=== PATIENT | male | born 1950 | race Caucasian/White ===

== ENCOUNTER 2017-03-12 01:20 | Emergency (ER) | payer MEDICARE ==
[2017-03-12] MEDS ORDERED: Norco 10/325 MG Tablet PO ONE ×2 (01:52)
--- NOTE | 2017-03-12 01:54 | ERPHSYRPT ---
- History of Present Illness Time Seen by Provider: 03/12/17 01:40 Source: patient Exam Limitations: clinical condition Patient Subjective Stated Complaint: PT STATES HE FELL SATURDAY AND HURT HIS RT SHOULDER AND HIS BACK. STATES HIS PAIN HAS INCREASED SINCE THEN. TODAY HE HAS BEEN NAUSEOUS AND HAS BEEN HAVING LOWER BACK PAIN ON THE RIGHT SIDE. STATES HE ALSO HAS A SORE THROAT. Triage Nursing Assessment: PT ALERT AND ORIENTED, ANSWERS QUESTIONS APPROP. PT AMBULATORY WITH SLIGHTLY LIMPING GAIT NOTED. RESPIRATIONS NONLABORED WITH LUNGS CTA. NO BRUISING NOTED TO RT SHOULDER OR BACK. SLIGHTLY LIMITED ROM TO RT SHOULDER AND TENDERNESS NOTED TO RT LOWER BACK. CAP REFILL, RADIAL PULSE, SENSATION TO RT ARM WNL. CAP REFILL, PEDAL PULSES, AND SENSATION TO BILAT LOWER EXT WNL. Physician History: PATIENT WITH A HISTORY OF HYPERTENSION COMPLAINS OF HAVING A FALL 1 WEEK ONTO HIS RIGHT SHOULDER AND LOWER BACK PAIN ABOVE HIS HIP. DENIES ASSOCIATED HEAD, NECK OR BACK INJURY, NUMBNESS, TINGLING OR WEAKNESS IN EXTREMITIES. HAS INCREASING PAIN DISCOMFORT IN HIS RIGHT SHOULDER AND LOWER BACK. PATIENT ALSO COMPLAINS OF A SORETHROAT. Occurred: last week Reason for Fall: slipped Injuries/Pain Location: no injury, upper extremity, back Loss of Consciousness: no loss of consciousness Quality: throbbing Severity of Pain-Max: moderate Severity of Pain-Current: moderate Allergies/Adverse Reactions: No Known Drug Allergies Allergy (Verified 03/12/17 01:34) Home Medications: Lisinopril 40 mg PO HS 02/15/16 [History] Hx Tetanus, Diphtheria Vaccination/Date Given: No Hx Influenza Vaccination/Date Given: No Hx Pneumococcal Vaccination/Date Given: No Immunizations Up to Date: No - Review of Systems Constitutional: No Fever, No Chills Eyes: No Symptoms Ears, Nose, & Throat: No Symptoms Respiratory: No Cough, No Dyspnea Cardiac: No Chest Pain, No Edema, No Syncope Abdominal/Gastrointestinal: No Symptoms, No Abdominal Pain, No Nausea, No Vomiting, No Diarrhea Genitourinary Symptoms: No Symptoms, No Dysuria Musculoskeletal: Fall, Injury, Joint Pain, Joint Swelling, No Back Pain, No Neck Pain Skin: No Rash Neurological: No Dizziness, No Focal Weakness, No Sensory Changes Psychological: No Symptoms Endocrine: No Symptoms All Other Systems: Reviewed and Negative - Past Medical History Pertinent Past Medical History: Yes Cardiac History: Hypertension History: Other 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 Disorders: Penile Cancer Other Medical History: kidney stones - Past Surgical History Past Surgical History: Yes Male Surgical History: Other Other Surgical History: CYSTO WITH STENT FOR KIDNEY STONES - Social History Smoking Status: Never smoker Exposure to second hand smoke: Yes Drug Use: none Patient Lives Alone: No - Nursing Vital Signs Nursing Vital Signs: Initial Vital Signs Temperature 98.0 F Temperature Source Oral Pulse Rate 59 Respiratory Rate 18 Blood Pressure [] 141/76 Pain Intensity 6 - Mya Coma Score Best Eye Response ([place]): (4) open spontaneously Best Verbal Response ([place]): (5) oriented Best Motor Response ([place]): (6) obeys commands [place] Total: 15 - Physical Exam General Appearance: no apparent distress, alert Head Injury: no evidence of injury Eye Exam: PERRL/EOMI ENT Exam: airway nml Neck Exam: supple, trachea midline, normal inspection, No tenderness Respiratory/Chest Exam: normal breath sounds, No respiratory distress Cardiovascular Exam: normal heart sounds, regular rate/rhythm Gastrointestinal Exam: soft, No tenderness, No distention, No guarding, No ecchymosis Back Exam: normal inspection, other (TENDERNESS RIGHT POSTERIOR SUPERIOR ILIAC CREST ), No vertebral tenderness Extremity Exam: normal inspection, normal range of motion, pelvis stable, pain with movement, No deformities Peripheral Pulses: carotid (R): 2+, carotid (L): 2+, femoral (R): 2+, femoral (L ): 2+, dorsalis-pedis (R): 2+, dorsalis-pedis (L): 2+ Neurologic Exam: alert, oriented x 3, cooperative, sensation nml, No motor deficits Skin Exam: normal color, warm, dry SpO2: 99 Oxygen Delivery: Room Air - Radiology Exams Shoulder X-ray Interpretation: Interpreted by me, Negative, No Fracture Pelvis X-ray Interpretation: Interpreted by me, Negative, No Fracture Ordered Tests: Active Orders 24 hr Category Date Time Status PELVIS (1 OR 2 VIEWS) Stat Exams 03/12/17 01:51 Taken SHOULDER Stat Exams 03/12/17 01:51 Taken CULTURE, THROAT Stat Lab 03/12/17 03:06 Received STREP SCREEN-BETA A Stat Lab 03/12/17 03:06 Completed Medication Summary Discontinued Medications Generic Name Dose Route Start Last Admin Trade Name Freq PRN Reason Stop Dose Admin Acetaminophen/Hydrocodone Bit[place] 1 tab 04/25/17 01:52 03/12/17 02:03 [place] 10/325 Mg Tablet PO 03/12/17 01:53 1 tab STAT ONE Administration Acetaminophen/Hydrocodone Bitart 2 tab 03/12/17 01:52 03/12/17 02:04 [place] 10/325 Mg Tablet PO 03/12/17 01:53 2 tab SENT HOME W/ PATIENT ONE Administration Acetaminophen/Hydrocodone Bitart Confirm 03/12/17 02:03 [place] 10/325 Mg Tablet Administered 03/12/17 02:04 Dose 3 tab .ROUTE .STK-MED ONE Lab/Rad Data: Laboratory Results 03/12/17 Range/Units 03:06 Streptococcus Screen NEGATIVE (Negative) - Progress Progress Note: 03/12/17 02:31 PATIENT GIVEN NORCO 10/325 AND zithromax 500MG ORALLY 03/12/17 03:24 Counseled pt/family regarding: lab results, diagnosis, need for follow-up, rad results - Departure Time of Disposition: 03:30 Departure Disposition: Home Clinical Impression: CONTUSION/STRAIN RIGHT SHOULDER, RIGHT SUPERIOR POSTERIOR ILIAC CREST CON, ACUTE PHARYNGITIS Condition: Stable Critical Care Time: No Referrals: LOIS RUEDA MD [Primary Care Provider] - Additional Instructions: NORCO 10/325 EVERY 4 HOURS FOR PAIN NEEDED. ANTIBIOTIC ZITHROMAX 250MG, 2 TABLETS DAY 1 THEN, 1 TABLET DAILY FOR 4 DAYS. WEAR THE RIGHT ARM SLING FOR COMFORT. CONSULT YOUR FAMILY PHYSICIAN FOR FOLLOWUP IN 1 WEEK. Prescriptions: Hydrocodone/APAP 10/325 mg [[place] 10/325 MG Tablet] 1 tab PO Q4H PRN PRN # 15 tablet PRN Reason: Pain Azithromycin 250 mg [Zithromax 250 MG TABLET] 250 mg PO ZPACK #6 tablet
[2017-03-12] MEDS ORDERED: Norco 10/325 MG Tablet ONE (02:03)
[2017-03-12] MEDS ORDERED: Zithromax 250 MG TABLET PO ONE (03:22)
[2017-03-12] MEDS ORDERED: Zithromax 250 MG TABLET ONE (03:33)
[2017-03-12 03:47] VITALS: BP 132/71; PULSE 57; O2SAT 98
--- NOTE | 2017-03-12 09:20 | XRAY ---
Indication: Pain following fall. Comparison: None AP pelvis demonstrates mild lumbosacral junction degenerative changes. No other bony, articular, or soft tissue abnormalities.
--- NOTE | 2017-03-12 09:20 | XRAY ---
Indication: Pain following fall. Comparison: None 3 views of the right shoulder demonstrates moderate AC degenerative arthropathy and scattered pulmonary calcified granulomas. No other bony, articular, or soft tissue abnormalities.
== END 2017-03-12 03:51 | disposition home or self-care (01) ==
LOC: ED 01:20
DX: S40.011A Contusion of right shoulder, initial encounter (principal); S43.401A Unspecified sprain of right shoulder joint, initial encounter; J02.9 Acute pharyngitis, unspecified
CPT/HCPCS: 72170; 73030; 87070; 87430; 99283; A9270-GY

== ENCOUNTER 2017-10-06 18:28 | Emergency (ER) | payer MEDICARE ==
--- NOTE | 2017-10-06 19:11 | ERPHSYRPT ---
- History of Present Illness Time Seen by Provider: 10/06/17 18:50 Source: patient Exam Limitations: clinical condition Patient Subjective Stated Complaint: chest pain since yesterday. cough and bronchitis symptoms since saturday. Triage Nursing Assessment: ambulated to room with some shortness of breath. intermittent dry cough noted. states chest pain is sharp when he coughs. denies any cardiac history. no edema noted. breath sounds diminished. Physician History: PATIENT WITH A HISTORY OF HYPERTENSION COMPLAINS OF PRODUCTIVE COUGH ASSOCIATED WITH SHARP PAINS AFTER COUGHING, OVER THE PAST 3 DAYS ASSOCIATED WITH LOW GRADE FEVER. DENIES DYSPNEA AND RADIATION OF PAIN TO NECK, JAW OR ARMS. Timing/Duration: day(s) Activities at Onset: none Quality: sharpness Location: substernal Chest Pain Radiation: no radiation Severity of Pain-Max: moderate Severity of Pain-Current: moderate Modifying Factors: Improves With: other (PAIN ONLY UPON COUGHING) Nitro Today/Relief: no nitro taken today Aspirin Treatment Today: no aspirin today Associated Symptoms: cough Prior Chest Pain/Cardiac Workup: no prior chest pain Allergies/Adverse Reactions: diazepam [From Valium] Adverse Reaction (Verified 10/06/17 19:01) Home Medications: Carvedilol 6.25 mg [Coreg 6.25 MG] 6.25 mg PO BID 10/06/17 [History] Lisinopril/Hydrochlorothiazide [Lisinopril-Hctz 20-25 mg Tab] 1 each PO DAILY [History] Hx Tetanus, Diphtheria Vaccination/Date Given: No Hx Influenza Vaccination/Date Given: No Hx Pneumococcal Vaccination/Date Given: No Immunizations Up to Date: No - Review of Systems Constitutional: No Fever, No Chills Eyes: No Symptoms Ears, Nose, & Throat: No Symptoms Respiratory: Cough, No Dyspnea Cardiac: Chest Pain, No Edema, No Syncope Abdominal/Gastrointestinal: No Symptoms, No Abdominal Pain, No Nausea, No Vomiting, No Diarrhea Genitourinary Symptoms: No Symptoms, No Dysuria Musculoskeletal: No Symptoms, No Back Pain, No Neck Pain Skin: No Rash Neurological: No Dizziness, No Focal Weakness, No Sensory Changes Psychological: No Symptoms Endocrine: No Symptoms All Other Systems: Reviewed and Negative - Past Medical History Pertinent Past Medical History: Yes Cardiac History: Hypertension History: Other 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 Disorders: Penile Cancer Other Medical History: kidney stones - Past Surgical History Past Surgical History: Yes Male Surgical History: Other Other Surgical History: CYSTO WITH STENT FOR KIDNEY STONES - Social History Smoking Status: Former smoker Exposure to second hand smoke: No Drug Use: none Patient Lives Alone: No - Nursing Vital Signs Nursing Vital Signs: Initial Vital Signs Temperature 98.6 F 10/06/17 18:48 Pulse Rate 79 10/06/17 18:48 Respiratory Rate 16 10/06/17 18:48 Blood Pressure 143/85 10/06/17 18:48 O2 Sat by Pulse Oximetry 100 10/06/17 18:48 Pain Scale Pain Intensity 0 - Physical Exam General Appearance: no apparent distress, alert Eye Exam: PERRL/EOMI, eyes nml inspection Ears, Nose, Throat Exam: normal ENT inspection, moist mucous membranes Neck Exam: normal inspection, non-tender, supple Respiratory Exam: normal breath sounds, chest tenderness (THERE IS PARASTERNAL CHEST WALL TENDERNESS, NO CREPITUS), lungs clear, No respiratory distress Cardiovascular Exam: regular rate/rhythm, normal heart sounds, No edema Gastrointestinal/Abdomen Exam: soft, No tenderness, No mass Back Exam: normal inspection, No CVA tenderness, No vertebral tenderness Extremity Exam: normal inspection, normal range of motion Neurologic Exam: alert, oriented x 3, cooperative, normal mood/affect, nml cerebellar function, sensation nml, No motor deficits Skin Exam: normal color, warm, dry Lymphatic Exam: No adenopathy SpO2: 100 Oxygen Delivery: Room Air - Course EKG Interpreted by Me: RATE, Sinus Rhythm, NORMAL AXIS - Radiology Exams Chest X-ray Interpretation: Interpreted by me, Negative, No Infiltrates Ordered Tests: Active Orders 24 hr Category Date Time Status Tube Splicer STAT Care 10/06/17 19:12 Active EKG-ER Only STAT Care 10/06/17 19:11 Active Oxygen-ED Only NASAL CANNULA 2 lpm Care 10/06/17 19:11 Active CHEST 1 VIEW (PORTABLE) Stat Exams 10/06/17 19:12 Taken BLOOD CULTURE Stat Lab 10/06/17 19:00 Received BMP Stat Lab 10/06/17 19:14 Results CBC W DIFF Stat Lab 10/06/17 19:14 Completed MAGNESIUM Stat Lab 10/06/17 19:16 Completed TROPONIN Q3H Lab 10/06/17 19:15 Completed TROPONIN Q3H Lab 10/06/17 22:15 Ordered TROPONIN Q3H Lab 10/07/17 01:15 Ordered TROPONIN Q3H Lab 10/07/17 04:15 Ordered TROPONIN Q3H Lab 10/07/17 07:15 Ordered Medication Summary Generic Name Dose Route Start Last Admin Trade Name Jrei PRN Reason Stop Dose Admin Sodium Chloride 1,000 mls @ 200 mls/hr 10/06/17 19:15 10/06/17 19:21 Sodium Chloride 0.9% 1000 Ml IV 11/05/17 19:14 200 mls/hr .Q5H ERICA Administration Discontinued Medications Generic Name Dose Route Start Last Admin Trade Name Jeri PRN Reason Stop Dose Admin Levofloxacin/Dextrose 500 mg in 100 mls @ 100 mls/hr 10/06/17 19:14 10/06/17 19:21 Levofloxacin 500mg/100ml D5w IV 10/06/17 20:13 100 mls/hr STAT STA Administration Levofloxacin/Dextrose Confirm 10/06/17 19:19 Levofloxacin 500mg/100ml D5w Administered 10/06/17 19:20 Dose 500 mg in 100 mls @ ud IV .[facility]-MED ONE Lab/Rad Data: Laboratory Result Diagrams 10/06/17 19:14 10/06/17 19:14 Laboratory Results 10/06/17 10/06/17 10/06/17 Range/Units 19:16 19:15 19:14 WBC (4.0-10.5) K/mm3 RBC (4.1-5.6) M/mm3 Hgb (12.5-18.0) gm/dl Hct (42-50) % MCV (78-100) fl MCH (26-32) pg MCHC (32-36) g/dl RDW (11.5-14.0) % Plt Count (150-450) K/mm3 MPV (6-9.5) fl Gran % (36.0-66.0) % Lymphocytes % (24.0-44.0) % Monocytes % (0.0-12.0) % Eosinophils % (0.00-5.0) % Basophils % (0.0-0.4) % Basophils # (0-0.4) Sodium 140 (136-145) mEq/L Potassium 4.3 (3.5-5.1) mEq/L Chloride 105 (98-107) mEq/L Carbon Dioxide 28.4 (21-32) mEq/L Anion Gap 10.4 (5-15) MEQ/L BUN Pending Creatinine 1.65 H (0.55-1.30) mg/dl Estimated GFR 45 ML/MIN Glucose 89 (70-110) MG/DL Calcium 8.7 (8.5-10.1) mg/dL Magnesium 2.1 (1.8-2.4) mg/dL Troponin I < 0.017 (0.000-0.056) ng/ml 10/06/17 Range/Units 19:14 WBC 3.3 L (4.0-10.5) K/mm3 RBC 4.44 (4.1-5.6) M/mm3 Hgb 12.8 (12.5-18.0) gm/dl Hct 39.7 L (42-50) % MCV 89.4 (78-100) fl MCH 28.8 (26-32) pg MCHC 32.2 (32-36) g/dl RDW 14.3 H (11.5-14.0) % Plt Count 137 L (150-450) K/mm3 MPV 10.8 H (6-9.5) fl Gran % 61.6 (36.0-66.0) % Lymphocytes % 18.0 L (24.0-44.0) % Monocytes % 16.2 H (0.0-12.0) % Eosinophils % 3.3 (0.00-5.0) % Basophils % 0.9 (0.0-0.4) % Basophils # 0.03 (0-0.4) Sodium (136-145) mEq/L Potassium (3.5-5.1) mEq/L Chloride (98-107) mEq/L Carbon Dioxide (21-32) mEq/L Anion Gap (5-15) MEQ/L BUN Creatinine (0.55-1.30) mg/dl Estimated GFR ML/MIN Glucose (70-110) MG/DL Calcium (8.5-10.1) mg/dL Magnesium (1.8-2.4) mg/dL Troponin I (0.000-0.056) ng/ml - Progress Progress: improved Progress Note: 10/06/17 20:34 ADMINISTERED LEVAQUIN 500MG IVPB Blood Culture(s) Obtained: Yes Antibiotics given: Yes (LEVAQUIN 500 IVPB) Counseled pt/family regarding: lab results, diagnosis, need for follow-up - Departure Time of Disposition: 21:00 Departure Disposition: Home Clinical Impression: ACUTE BRONCHITIS Condition: Stable Critical Care Time: No Referrals: LOIS RUEDA MD [Primary Care Provider] - Additional Instructions: ANTIBIOTIC AUGMENTIN 875MG TWICE DAILY FOR 10 DAYS. CONTINUE ALL CURRENT MEDICATIONS AND COUGH SYRUP. TESSALON PERLES 100MG EVERY 8 HOURS FOR COUGHING. CONSULT YOUR PRIMARY CARE PROVIDER FOR EVALUATION. Prescriptions: Amox Tr/Potass Clav. 875 mg [Augmentin 875-125 Tablet] 875 mg PO BID #20 tablet Benzonatate [Tessalon Perle] 100 mg PO TID PRN #15 capsule PRN Reason: Cough
[2017-10-06] MEDS ORDERED: Levofloxacin 500MG/100ML D5W 500 MG/100 ML BAG IV STA (19:14)
[2017-10-06] MEDS ORDERED: Sodium Chloride 0.9% 1000 ML 1,000 ML IV SCH (19:15)
[2017-10-06] MEDS ORDERED: Levofloxacin 500MG/100ML D5W 500 MG/100 ML BAG IV ONE (19:19)
[2017-10-06] MEDS ORDERED: Sodium Chloride 0.9% 1000 ML 1,000 ML ONE (19:19)
[2017-10-06 19:22] LABS: ANION GAP 10.4 MEQ/L (5-15); BASOPHIL % 0.9 % (0.0-0.4); Carbon Dioxide 28.4 mEq/L (21-32); Eosinophil % 3.3 % (0.00-5.0); Granulocytes % 61.6 % (36.0-66.0); Mean Cell Volume 89.4 fl (78-100); Mean Corpuscular Hemoglobin 28.8 pg (26-32); Mean Platelet Volume 10.8 fl (6-9.5); Monocytes % 16.2 % (0.0-12.0); Platelet Count 137 K/mm3 (150-450); Potassium 4.3 mEq/L (3.5-5.1); Red Blood Count 4.44 M/mm3 (4.1-5.6); Red Cell Distribution Width 14.3 % (11.5-14.0); White Blood Count 3.3 K/mm3 (4.0-10.5)
[2017-10-06 21:03] VITALS: BP 137/87; PULSE 78; O2SAT 99
--- NOTE | 2017-10-07 08:48 | XRAY ---
Indication: Cough, congestion, fever, and chest pain. Comparison: None Portable chest hyperinflated and clear with incidental scattered calcified granulomas. Heart is not enlarged. Bony thorax intact. Impression: Nonacute hyperinflated chest. Evidence for old granulomatous disease.
== END 2017-10-06 21:18 | disposition home or self-care (01) ==
LOC: ED 18:28
DX: J20.9 Acute bronchitis, unspecified (principal)
CPT/HCPCS: 36000; 36415; 71010; 80048; 83735; 84484; 85025; 87040; 93005; 93041; 96360; 96365; 99284; 99285; J1956

== ENCOUNTER 2017-12-13 00:21 | Emergency (ER) | payer MEDICARE ==
[2017-12-13 00:39] VITALS: BP 176/88
[2017-12-13] MEDS ORDERED: Zofran 4 MG/2 ML VIAL IV ONE (00:42)
[2017-12-13] MEDS ORDERED: Sodium Chloride 0.9% 1000 ML 1,000 ML IV STA (00:42)
[2017-12-13] MEDS ORDERED: MORPHINE SULFATE 4 MG INJ IV ONE (00:42)
--- NOTE | 2017-12-13 00:47 | ERPHSYRPT ---
- History of Present Illness Time Seen by Provider: 12/13/17 00:37 Source: patient Exam Limitations: no limitations Patient Subjective Stated Complaint: left lesticle and left lower abdominal pain increasingly worse since 1830 today. Triage Nursing Assessment: alert and oriented. non distress.. stating pain to left testicle that goes into lower abdomen.. states has hx of kkidney stones on the other side Physician History: 67 y/o male comes to the ER with complaints of left lower abdominal pain that started this evening. Pt has a history of kidney stones. Pt describes the pain as sharp, constant, 9/10 and pt has not taken any pain meds. Pt denies any fever , chills, nausea, vomiting, constipation, diarrhea, dysuria, hematuria or polyuria. Timing/Duration: today Activites at Onset: none Quality: sharpness Onset Location: LLQ Pain Radiation: none Severity of Pain-Max: severe Severity of Pain-Current: severe Modifying Factors: Improves With: nothing Associated Symptoms: No nausea, No vomiting Allergies/Adverse Reactions: diazepam [From Valium] Adverse Reaction (Verified 12/13/17 00:45) Home Medications: Carvedilol 6.25 mg [Coreg 6.25 MG] 6.25 mg PO BID 10/06/17 [History] Lisinopril/Hydrochlorothiazide [Lisinopril-Hctz 20-25 mg Tab] 1 each PO DAILY [History] Hx Tetanus, Diphtheria Vaccination/Date Given: No Hx Influenza Vaccination/Date Given: No Hx Pneumococcal Vaccination/Date Given: No - Past Medical History Pertinent Past Medical History: Yes Cardiac History: Hypertension History: Other 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 Disorders: Penile Cancer Other Medical History: kidney stones - Past Surgical History Past Surgical History: Yes Male Surgical History: Other Other Surgical History: CYSTO WITH STENT FOR KIDNEY STONES - Social History Smoking Status: Never smoker Exposure to second hand smoke: No Drug Use: none Patient Lives Alone: No - Review of Systems Constitutional: No Fever, No Chills Eyes: No Symptoms Ears, Nose, & Throat: No Symptoms Respiratory: No Cough, No Dyspnea Cardiac: No Chest Pain, No Edema, No Syncope Abdominal/Gastrointestinal: Abdominal Pain, No Nausea, No Vomiting, No Diarrhea Genitourinary Symptoms: No Dysuria, No Frequency, No Hematuria, No Urinary Retention Musculoskeletal: No Back Pain, No Neck Pain Skin: No Rash Neurological: No Dizziness, No Focal Weakness, No Sensory Changes Psychological: No Symptoms Endocrine: No Symptoms All Other Systems: Reviewed and Negative - Nursing Vital Signs Nursing Vital Signs: Initial Vital Signs Temperature 97.5 F 12/13/17 00:28 Pulse Rate 90 12/13/17 00:28 Respiratory Rate 18 12/13/17 00:28 Blood Pressure 176/88 12/13/17 00:28 O2 Sat by Pulse Oximetry 93 L 12/13/17 00:28 Pain Scale Pain Intensity 0 - Physical Exam General Appearance: mild distress, alert Eye Exam: PERRL/EOMI Ears, Nose, Throat Exam: pharynx normal, moist mucous membranes Neck Exam: normal inspection, supple Respiratory Exam: normal breath sounds, lungs clear Cardiovascular Exam: regular rate/rhythm, pulse deficit, No edema Gastrointestinal/Abdomen Exam: soft, tenderness, No distention, No rebound Back Exam: normal inspection, normal range of motion, No CVA tenderness Extremity Exam: normal inspection, normal range of motion, No pedal edema Neurologic Exam: alert, oriented x 3, cooperative, sensation nml, No motor deficits Skin Exam: normal color, warm, dry, No rash SpO2: 93 Oxygen Delivery: Room Air - Course Nursing assessment & vital signs reviewed: Yes Ordered Tests: Active Orders 24 hr Category Date Time Status IV Insertion STAT Care 12/13/17 00:42 Active ABDOMEN AND PELVIS W/0 CONTRAS [CT] Stat Exams 12/13/17 00:43 Taken AMYLASE Stat Lab 12/13/17 01:24 Received CBC W DIFF Stat Lab 12/13/17 01:24 Completed CMP Stat Lab 12/13/17 01:24 Received CULTURE,URINE Stat Lab 12/13/17 00:46 Received LIPASE Stat Lab 12/13/17 01:24 Received UA W/ MICROSCOPIC Stat Lab 12/13/17 00:46 Completed Medication Summary Generic Name Dose Route Start Last Admin Trade Name Freq PRN Reason Stop Dose Admin Oxycodone/Acetaminophen 2 tab 12/13/17 01:49 Percocet Tablet 5/325mg PO 12/13/17 01:50 SENT HOME W/ PATIENT STA Discontinued Medications Generic Name Dose Route Start Last Admin Trade Name Freq PRN Reason Stop Dose Admin Sodium Chloride 1,000 mls @ 999 mls/hr 12/13/17 00:42 12/13/17 01:16 Sodium Chloride 0.9% 1000 Ml IV 12/13/17 01:42 999 mls/hr .Q1H1M STA Administration Sodium Chloride Confirm 12/13/17 01:01 Sodium Chloride 0.9% 1000 Ml Administered 12/13/17 01:02 Dose 1,000 mls @ ud .ROUTE .STK-MED ONE Ceftriaxone Sodium/Dextrose 1 g in 50 mls @ 100 mls/hr 12/13/17 01:20 01:30 Rocephin 1 Gm-D5w 50 Ml Bag IV 12/13/17 01:49 100 mls/hr STAT ONE Administration Ceftriaxone Sodium/Dextrose Confirm 12/13/17 01:27 Rocephin 1 Gm-D5w 50 Ml Bag Administered 12/13/17 01:28 Dose 1 g in 50 mls @ ud IV .STK-MED ONE Morphine Sulfate 4 mg 12/13/17 00:42 12/13/17 01:15 Morphine Sulfate 4 Mg Inj IV 12/13/17 00:43 4 mg STAT ONE Administration Morphine Sulfate Confirm 12/13/17 01:01 Morphine Sulfate 4 Mg Inj Administered 12/13/17 01:02 Dose 4 mg .ROUTE .STK-MED ONE Ondansetron HCl 4 mg 12/13/17 00:42 12/13/17 01:15 Zofran 4 Mg/2 Ml Vial IV 12/13/17 00:43 4 mg STAT ONE Administration Ondansetron HCl Confirm 12/13/17 01:01 Zofran 4 Mg/2 Ml Vial Administered 12/13/17 01:02 Dose 4 mg .ROUTE .STK-MED ONE Tamsulosin HCl 0.4 mg 12/13/17 01:21 12/13/17 01:29 Flomax 0.4 Mg PO 12/13/17 01:22 0.4 mg ONCE ONE Administration Tamsulosin HCl Confirm 12/13/17 01:26 Flomax 0.4 Mg Administered 12/13/17 01:27 Dose 0.4 mg .ROUTE .STK-MED ONE Lab/Rad Data: Laboratory Result Diagrams 12/13/17 01:24 Laboratory Results 12/13/17 12/13/17 Range/Units 01:24 00:46 WBC 7.2 (4.0-10.5) K/mm3 RBC 4.28 (4.1-5.6) M/mm3 Hgb 12.1 L (12.5-18.0) gm/dl Hct 37.9 L (42-50) % MCV 88.6 (78-100) fl MCH 28.2 (26-32) pg MCHC 31.9 L (32-36) g/dl RDW 15.3 H (11.5-14.0) % Plt Count 173 (150-450) K/mm3 MPV 9.9 H (6-9.5) fl Gran % 75.4 H (36.0-66.0) % Lymphocytes % 13.7 L (24.0-44.0) % Monocytes % 8.5 (0.0-12.0) % Eosinophils % 2.1 (0.00-5.0) % Basophils % 0.3 (0.0-0.4) % Basophils # 0.02 (0-0.4) Ur Collection Type VOID Urine Color YELLOW (YELLOW) Urine Appearance CLOUDY (CLEAR) Urine pH 6.0 (5-6) Ur Specific [place] 1.015 (1.005-1.025) Urine Protein 30 (Negative) Urine Ketones NEGATIVE (NEGATIVE) Urine Blood 250 (0-5) Red/ul Urine Nitrite POSITIVE (NEGATIVE) Urine Bilirubin NEGATIVE (NEGATIVE) Urine Urobilinogen NORMAL (0-1) mg/dL Ur Leukocyte Esterase 2+ (NEGATIVE) Urine Microscopic RBC 15-25 (0-2) /HPF Urine Microscopic WBC 50-100 (0-5) /HPF Ur Epithelial Cells FEW (FEW) /HPF Urine Bacteria MANY (NEGATIVE) /HPF Urine Culture Reflexed YES (NO) Urine Glucose NEGATIVE (NEGATIVE) mg/dL Specimen Received 12/13/17 0045 - Progress Progress: improved Progress Note: 12/13/17 01:[address] scan abd/pelvis shows a left mid ureter 4mm obstructing stone. Pt has no pain after receiving morphine 4mg, zofran 4mg Iv X 1 dose and NS fluids. Pt has a UTI and will be given a dose of rocephin. I spoke to Dr Petersen, urologist at [facility] and he wants the patient to go to [facility] if he should have worsening pain. Pt will be sent home on flomax, cipro, zofran, toradol and percocet. - Departure Time of Disposition: 01:52 Departure Disposition: Home Clinical Impression: Kidney stone Condition: Stable Critical Care Time: No Referrals: LOIS RUEDA MD [Primary Care Provider] - CHERYL MULLEN [COURTESY STAFF] - Additional Instructions: Call Dr Mullen's office tomorrow to set up an appointment for early next week. [facility] to [facility] if you should have worsening abdominal pain, back pain, nausea, vomiting, fever or chills. Prescriptions: Ciprofloxacin HCl [Cipro] 500 mg PO BID #14 tablet Ketorolac Tromethamine [Toradol] 10 mg PO QID PRN #20 tablet PRN Reason: Pain Ondansetron [Zofran Odt] 4 mg PO QID PRN #20 tab.rapdis PRN Reason: Nausea/Vomiting Oxycodone HCl/Acetaminophen [Percocet 5-325 mg Tablet] 1 each PO QID PRN #14 tablet MDD 4 PRN Reason: Severe Pain Tamsulosin HCl 0.4 mg [Flomax 0.4 MG] 0.4 mg PO DAILY #10 cap
[2017-12-13] MEDS ORDERED: MORPHINE SULFATE 4 MG INJ ONE (01:01)
[2017-12-13] MEDS ORDERED: Zofran 4 MG/2 ML VIAL ONE (01:01)
[2017-12-13] MEDS ORDERED: Sodium Chloride 0.9% 1000 ML 1,000 ML ONE (01:01)
[2017-12-13 01:02] LABS: Appearance CLOUDY (CLEAR); Bilirubin NEGATIVE (NEGATIVE); Blood 250 Ery/ul (0-5); Epithelial Cells FEW /HPF (FEW); Glucose NEGATIVE (NEGATIVE); Ketones NEGATIVE (NEGATIVE); Leukocyte Esterase 2+ (NEGATIVE); Nitrite POSITIVE (NEGATIVE); Protein,Urine Dip 30 (Negative); Specific Gravity 1.015 (1.005-1.025); Urobilinogen NORMAL mg/dL (0-1); WBC 50-100 /HPF (0-5)
[2017-12-13 01:03] LABS: Bacteria MANY /HPF (NEGATIVE)
[2017-12-13] MEDS ORDERED: ROCEPHIN 1 Gm-D5w 50 ml Bag** 1 G/50 ML IVPB IV ONE ×2 (01:20→01:27)
[2017-12-13] MEDS ORDERED: Flomax 0.4 MG PO ONE (01:21)
[2017-12-13] MEDS ORDERED: Flomax 0.4 MG ONE (01:26)
[2017-12-13 01:27] LABS: BASOPHIL % 0.3 % (0.0-0.4); Basophil (Absolute #) 0.02 (0-0.4); Eosinophil % 2.1 % (0.00-5.0); Eosinophil (Absolute #) 0.15 (0-0.5); Granulocyte Absolute (ANC) 5.44 (1.4-6.9); Granulocytes % 75.4 % (36.0-66.0); Hematocrit 37.9 % (42-50); Hemoglobin 12.1 gm/dl (12.5-18.0); Lymphocyte (Absolute #) 0.99 (1.0-4.6); Lymphocytes % 13.7 % (24.0-44.0); Mean Cell Volume 88.6 fl (78-100); Mean Corpuscular Hemoglobin 28.2 pg (26-32); Mean Corpuscular Hgb Concent. 31.9 g/dl (32-36); Mean Platelet Volume 9.9 fl (6-9.5); Monocyte (Absolute #) 0.61 (0.0-1.3); Monocytes % 8.5 % (0.0-12.0); Platelet Count 173 K/mm3 (150-450); Red Blood Count 4.28 M/mm3 (4.1-5.6); Red Cell Distribution Width 15.3 % (11.5-14.0); White Blood Count 7.2 K/mm3 (4.0-10.5)
[2017-12-13 01:46] VITALS: PULSE 78
[2017-12-13] MEDS ORDERED: PERCOCET TABLET 5/325MG PO STA (01:49)
[2017-12-13 01:51] LABS: ALBUMIN 3.5 g/dL (3.4-5.0); ANION GAP 10.3 MEQ/L (5-15); BILIRUBIN,TOTAL 0.4 mg/dL (0.2-1.0); Calcium 8.9 mg/dL (8.5-10.1); Carbon Dioxide 28.5 mEq/L (21-32); Creatinine 1 1.58 mg/dl (0.55-1.30); Potassium 3.7 mEq/L (3.5-5.1); Total Protein 7.4 gm/dL (6.4-8.2)
[2017-12-13 01:55] VITALS: O2SAT 93
[2017-12-13] MEDS ORDERED: PERCOCET TABLET 5/325MG ONE (02:01)
--- NOTE | 2017-12-13 09:28 | XRAY ---
Indication: Left lower quadrant pain. History kidney stone. Multiple contiguous axial images obtained through the abdomen and pelvis without contrast as ordered. Comparison: February 15, 2016. Lung bases again demonstrates scattered calcified granulomas. No infiltrate or effusion. Heart is not enlarged. Stable small hiatal hernia. Noncontrasted stomach and bowel loops appear nonobstructed. Normal appendix. No free fluid/air. There is now a 4 mm left proximal ureteral calculus, approximately L3-L4 level. More proximal left ureter is slightly prominent with mild hydronephrosis but no perinephric fluid consistent with partial obstruction. Also new 3 mm right proximal ureteral calculus, approximately L4 level without significant hydronephrosis or hydroureter. There remains multiple bilateral renal micro-calculi. Remaining liver, gallbladder, pancreas, spleen, adrenal glands, kidneys, ureters, and bladder appear unremarkable. There remains minimal aortoiliac calcifications without AAA. Osseous structures intact with stable lumbosacral junction degenerative disc disease. Stable small fatty left inguinal hernia and partially visualized left scrotal hydrocele Impression: 1. New bilateral proximal ureteral micro-calculi as detailed. Stable bilateral renal micro-calculi. 2. Stable small hiatal hernia, fatty left inguinal hernia, and partially visualized left scrotal hydrocele. Comment: Preliminary interpretation was made by [facility]. Right ureteral calculus, hiatal hernia, fatty left inguinal hernia, and left scrotal hydrocele not reported and are not felt to change patient care. CTDI 23.68
== END 2017-12-13 02:24 | disposition home or self-care (01) ==
LOC: ED 00:21
DX: N20.0 Calculus of kidney (principal); N39.0 Urinary tract infection, site not specified; Z87.442 Personal history of urinary calculi
CPT/HCPCS: 36000; 36415; 74176; 80053; 81000; 82150; 83690; 85025; 87077; 87086; 87186; 96360; 96365; 96374; 96375; 99284; J0696; J2270; J2405; A9270-GY

== ENCOUNTER 2018-07-25 12:22 | Emergency (ER) | payer MEDICARE, OTHER ==
[2018-07-25] MEDS ORDERED: Adacel Vial IM ONE ×2 (12:36→12:40)
--- NOTE | 2018-07-25 12:36 | ERPHSYRPT ---
- History of Present Illness Time Seen by Provider: 07/25/18 12:33 Source: patient, family Exam Limitations: no limitations Physician History: The patient is a 67-year-old right-handed male with his complaining that he accidentally lacerated his left ring finger on a jacqui nail while carrying sheet rock out of the wall prior to arrival. His last tetanus vaccination is unknown. He denies numbness or tingling. He can move his finger freely without difficulty. His past medical history significant for hypertension and BPH. Timing/Duration: today Quality: painful Severity: mild Location: hands (left ring finger) Possible Causes: other (nail) Associated Symptoms: denies symptoms Allergies/Adverse Reactions: diazepam [From Valium] Adverse Reaction (Verified 07/25/18 12:33) Home Medications: Carvedilol 6.25 mg [Coreg 6.25 MG] 6.25 mg PO BID 10/06/17 [History] Lisinopril/Hydrochlorothiazide [Lisinopril-Hctz 20-25 mg Tab] 1 each PO DAILY [History] Hx Tetanus, Diphtheria Vaccination/Date Given: No Hx Influenza Vaccination/Date Given: No Hx Pneumococcal Vaccination/Date Given: No - Review of Systems Constitutional: No Fever, No Chills Eyes: No Symptoms Ears, Nose, & Throat: No Symptoms Respiratory: No Cough, No Dyspnea Cardiac: No Chest Pain, No Edema, No Syncope Abdominal/Gastrointestinal: No Abdominal Pain, No Nausea, No Vomiting, No Diarrhea Genitourinary Symptoms: No Dysuria Musculoskeletal: No Back Pain, No Neck Pain Skin: Other (laceration) Neurological: No Dizziness, No Focal Weakness, No Sensory Changes Psychological: No Symptoms Endocrine: No Symptoms Hematologic/Lymphatic: No Symptoms Immunological/Allergic: No Symptoms All Other Systems: Reviewed and Negative - Past Medical History Pertinent Past Medical History: Yes Cardiac History: Hypertension History: Other 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 Disorders: Penile Cancer Other Medical History: kidney stones - Past Surgical History Past Surgical History: Yes Male Surgical History: Other Other Surgical History: CYSTO WITH STENT FOR KIDNEY STONES - Social History Smoking Status: Never smoker Exposure to second hand smoke: No Drug Use: none Patient Lives Alone: No - Nursing Vital Signs Nursing Vital Signs: Initial Vital Signs Temperature 97.5 F 07/25/18 12:26 Pulse Rate 60 07/25/18 12:26 Respiratory Rate 20 09/07/18 12:26 Blood Pressure 115/75 07/25/18 12:26 O2 Sat by Pulse Oximetry 100 07/25/18 12:26 Pain Scale Pain Intensity 2 - Physical Exam General Appearance: no apparent distress, alert Eye Exam: PERRL/EOMI, eyes nml inspection Ears, Nose, Throat Exam: normal ENT inspection, pharynx normal, moist mucous membranes Neck Exam: normal inspection, non-tender, supple, full range of motion Respiratory Exam: normal breath sounds, lungs clear, No respiratory distress Cardiovascular Exam: regular rate/rhythm, normal heart sounds Gastrointestinal/Abdomen Exam: soft, mass, No tenderness Rectal Exam: not done Back Exam: normal inspection, normal range of motion, No CVA tenderness, No vertebral tenderness Extremity Exam: normal inspection, normal range of motion Neurologic Exam: alert, oriented x 3, cooperative, normal mood/affect, sensation nml, No motor deficits Skin Exam: laceration (3 cm linear laceration to dorsal surface of mid left ring finger) SpO2 Interpretation: normal Procedures - Laceration/Wound Repair Left Dorsal Hand Wound Location: Left, hand Wound Length (cm): 3 Wound's Depth, Shape: superficial, linear Wound Explored: clean Irrigated: Yes Hibiclens Prep: Yes Volume Anesthetic (ccs): 6 Wound Repaired With: sutures Suture Size/Type: 4-0, ethilon Number of Sutures: 4 Layer Closure?: No Sterile Dressing Applied?: Yes Splint Applied?: Yes Ordered Tests: Active Orders 24 hr Category Date Time Status Wound Care STAT Care 07/25/18 12:36 Active Medication Summary Discontinued Medications Generic Name Dose Route Start Last Admin Trade Name Jeri PRN Reason Stop Dose Admin Diphtheria/Tetanus/Acell Pertussis 0.5 ml 07/25/18 12:36 07/25/18 12:41 Adacel Vial IM 07/25/18 12:37 0.5 ml .ONCE ONE Administration Diphtheria/Tetanus/Acell Pertussis Confirm 07/25/18 12:40 Adacel Vial Administered 07/25/18 12:41 Dose 0.5 ml IM .STK-MED ONE Lidocaine HCl 10 ml 07/25/18 12:50 07/25/18 13:03 Xylocaine 1% Hcl 20 Ml Mdv IJ 07/25/18 12:51 10 ml STAT ONE Administration Lidocaine HCl Confirm 07/25/18 12:55 Xylocaine 1% Hcl 20 Ml Mdv Administered 07/25/18 12:56 Dose 5 ml .ROUTE .STK-MED ONE - Progress Progress: improved Counseled pt/family regarding: need for follow-up - Departure Time of Disposition: 13:31 Departure Disposition: Home Clinical Impression: Finger laceration Condition: Stable Critical Care Time: No Referrals: LOIS RUEDA MD [Primary Care Provider] - Additional Instructions: You have a laceration to your left ring finger that was closed with 4 sutures. Have her sutures removed by her primary medical doctor in 12-14 days. You were given a tetanus vaccination in the ER. Take augmentin 875 twice a day for 10 days. Take Tylenol or ibuprofen as needed for pain. Prescriptions: Amoxicillin/Potassium Clav [Augmentin 875-125 Tablet] 875 mg PO BID #20 tablet
[2018-07-25] MEDS ORDERED: XYLOCAINE 1% HCL 20 ML MDV IJ ONE (12:50)
[2018-07-25] MEDS ORDERED: XYLOCAINE 1% HCL 20 ML MDV ONE (12:55)
[2018-07-25 13:47] VITALS: BP 123/68; PULSE 71; O2SAT 96
== END 2018-07-25 13:47 | disposition home or self-care (01) ==
LOC: ED 12:22
DX: S61.412A Laceration without foreign body of left hand, initial encounter (principal); W45.0XXA Nail entering through skin, initial encounter; Y93.H3 Activity, building and construction
CPT/HCPCS: 12002; 90471; 90715; 96372; 99284

== ENCOUNTER 2021-11-09 18:17 | Observation (INO) | payer MEDICARE ==
--- NOTE | 2021-11-09 18:24 | ERPHSYRPT ---
- History of Present Illness Source: patient, EMS Exam Limitations: no limitations Timing/Duration: week(s) (Approximately 3 weeks) Cough Quality/Degree: moderate, dry cough Modifying Factors: Improves With: coughing Associated Symptoms: cough, muscle aches, shortness of breath Hx Tetanus, Diphtheria Vaccination/Date Given: No Hx Influenza Vaccination/Date Given: No Hx Pneumococcal Vaccination/Date Given: No <ISABELA IRAHETA - Last Filed: 11/09/21 18:52> <ROMERO WASHINGTON - Last Filed: 11/09/21 22:27> - History of Present Illness Time Seen by Provider: 11/09/21 18:24 Physician History: This is a 71-year-old overweight white male patient with a history of hypertension who has had cold and cough symptoms for approximately 3 weeks. There is associated nausea muscle aches and pains. Patient has had his COVID-19 vaccinations. His cough symptoms and associated shortness of breath was worse today. EMS arrived at the home and the patient required 4 L oxygen via nasal cannula to keep his oxygen saturation at 96%. Patient did receive an albuterol nebulizer treatment in route to the emergency department. Patient denies chest pain. He has had no fevers. He has no significant abdominal pain. (ISABELA IRAHETA) Allergies/Adverse Reactions: morphine Allergy (Verified 11/09/21 18:22) diazepam [From Valium] Adverse Reaction (Verified 11/09/21 18:22) Home Medications: Carvedilol 6.25 mg [Coreg 6.25 MG] 6.25 mg PO BID 10/06/17 [History] Lisinopril/Hydrochlorothiazide [Lisinopril-Hctz 20-25 mg Tab] 1 each PO DAILY 10/06/17 [History] Allopurinol 300 mg [Zyloprim 300 mg] 1 tab PO HS 11/09/21 [History] Ergocalciferol (Vitamin D2) [Vitamin D2] 50,000 unit PO DIRECTIONS UNKNOWN 11/09/21 [History] Travel Risk - International Travel Have you traveled outside of the country in past 3 weeks: No - Coronavirus Screening Are you exhibiting any of the following symptoms?: Yes Symptoms: Cough: New Onset, Shortness of Breath, Headaches/Body Aches/Fatigue Close contact with a COVID-19 positive Pt in past 14-21 Days: Yes <ISABELA IRAHETA - Last Filed: 11/09/21 18:52> - Review of Systems Constitutional: No Symptoms Eyes: No Symptoms Ears, Nose, & Throat: No Symptoms Respiratory: Cough, Dyspnea Cardiac: No Symptoms Abdominal/Gastrointestinal: No Symptoms Genitourinary Symptoms: No Symptoms Musculoskeletal: No Symptoms Skin: No Symptoms Neurological: No Symptoms Psychological: No Symptoms Endocrine: No Symptoms Hematologic/Lymphatic: No Symptoms Immunological/Allergic: No Symptoms All Other Systems: Reviewed and Negative <ISABELA IRAHETA - Last Filed: 11/09/21 18:52> - Past Medical History Pertinent Past Medical History: Yes Cardiac History: Hypertension History: Other 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 Disorders: Penile Cancer Other Medical History: kidney stones - Past Surgical History Past Surgical History: Yes Male Surgical History: Other Other Surgical History: CYSTO WITH STENT FOR KIDNEY STONES - Social History Smoking Status: Never smoker Exposure to second hand smoke: No Drug Use: none Patient Lives Alone: No <ISABELA IRAHETA - Last Filed: 11/09/21 18:52> - Physical Exam General Appearance: mild distress, alert, anxiety, obese Eye Exam: PERRL/EOMI, eyes nml inspection Ears, Nose, Throat Exam: normal ENT inspection, moist mucous membranes Neck Exam: normal inspection, non-tender, supple, full range of motion Respiratory Exam: normal breath sounds, lungs clear, airway intact, No chest tenderness, No respiratory distress Cardiovascular Exam: regular rate/rhythm, normal heart sounds, normal peripheral pulses Gastrointestinal/Abdomen Exam: soft, normal bowel sounds, No tenderness Rectal Exam: not done Back Exam: normal inspection, normal range of motion, No CVA tenderness, No vertebral tenderness Extremity Exam: normal inspection, normal range of motion, pelvis stable Neurologic Exam: alert, oriented x 3, cooperative, dry cans back tender II-XII nml as tested, normal mood/affect, nml cerebellar function, nml station & gait, sensation nml Skin Exam: normal color, warm, dry Lymphatic Exam: No adenopathy SpO2 Interpretation: normal SpO2: 95 O2 Delivery: Nasal Cannula (4 L oxygen) <ISABELA IRAHETA - Last Filed: 11/09/21 18:52> - Nursing Vital Signs Nursing Vital Signs: Initial Vital Signs Temperature 99.7 F 11/09/21 18:24 Pulse Rate 82 11/09/21 18:24 Respiratory Rate 20 11/09/21 18:24 Blood Pressure 101/66 11/09/21 18:24 O2 Sat by Pulse Oximetry 95 11/09/21 18:24 Pain Scale Pain Intensity 0 - Course Nursing assessment & vital signs reviewed: Yes EKG Interpreted by Me: RATE (81), Sinus Rhythm, NORMAL AXIS, NORMAL INTERVALS, NORMAL QRS, NORMAL ST-T, Other (No acute ischemic changes. There are no changes from EKG dated 10/06/2017.) <ISABELA IRAHETA - Last Filed: 11/09/21 18:52> - Radiology Exams Chest X-ray Interpretation: Interpreted by me (Scattered calcified granulomas, bibasilar atelectasis normal cardiac silhouette intact bony thorax.) <ROMERO WASHINGTON - Last Filed: 11/09/21 22:27> Ordered Tests: Active Orders 24 hr Category Date Time Status [employer] STAT Care 11/09/21 18:50 Active EKG-ER Only STAT Care 11/09/21 18:49 Active IV Insertion STAT Care 11/09/21 18:49 Active Isolation, Initiate & Maintain STAT Care 11/09/21 18:49 Active Pulse Oximetry (ED) STAT Care 11/09/21 18:49 Active CHEST 1 VIEW (PORTABLE) Stat Exams 11/09/21 18:50 Taken BLOOD CULTURE Stat Lab 11/09/21 19:15 Ordered CBC W DIFF Stat Lab 11/09/21 19:10 Completed CMP Stat Lab 11/09/21 19:10 Completed D-DIMER QUANTITATIVE Stat Lab 11/09/21 19:10 Completed Ferritin Stat Lab 11/09/21 19:10 Completed INFLUENZA A+B DA Stat Lab 11/09/21 19:15 Completed LDH-LACTATE DEHYDROGENASE Stat Lab 11/09/21 19:10 Completed Lactic Acid Stat Lab 11/09/21 19:20 Completed Sully Screen Stat Lab 11/09/21 19:10 Completed TROPONIN Q3H Lab 11/09/21 19:10 Completed TROPONIN Q3H Lab 11/09/21 22:00 Ordered TROPONIN Q3H Lab 11/10/21 01:00 Ordered TROPONIN Q3H Lab 11/10/21 04:00 Ordered TROPONIN Q3H Lab 11/10/21 07:00 Ordered UA W/RFX UR CULTURE Stat Lab 11/09/21 21:14 Completed Medication Summary Generic Name Dose Route Start Last Admin Trade Name Jeri PRN Reason Stop Dose Admin Sodium Chloride 1,000 mls @ 50 mls/hr 11/09/21 19:00 11/09/21 20:19 Sodium Chloride 0.9% 1000 Ml IV 12/09/21 18:59 50 mls/hr .Q20H ERICA Administration Discontinued Medications Generic Name Dose Route Start Last Admin Trade Name Jeri PRN Reason Stop Dose Admin Calcium Gluconate 1,000 mg 11/09/21 20:05 11/09/21 20:19 Calcium Gluconate 1000 Mg/10 Ml Vial IV 11/09/21 20:06 1,000 mg STAT ONE Administration Calcium Gluconate Confirm 11/09/21 20:17 Calcium Gluconate 1000 Mg/10 Ml Vial Administered 11/09/21 20:18 Dose 1,000 mg IV .ClickDelivery ONE Lab/Rad Data: Laboratory Result Diagrams 11/09/21 19:10 11/09/21 19:10 Laboratory Results 11/09/21 11/09/21 11/09/21 Range/Units 21:14 20:58 19:20 WBC (4.0-10.5) K/mm3 RBC (4.1-5.6) M/mm3 Hgb (12.5-18.0) gm/dl Hct (42-50) % MCV (78-100) fl MCH (26-32) pg MCHC (32-36) g/dl RDW (11.5-14.0) % Plt Count (150-450) K/mm3 MPV (7.5-11.0) fl Gran % (36.0-66.0) % Eos # (Auto) (0-0.5) Absolute Lymphs (auto) (1.0-4.6) Absolute Monos (auto) (0.0-1.3) Lymphocytes % (24.0-44.0) % Monocytes % (0.0-12.0) % Eosinophils % (0.00-5.0) % Basophils % (0.0-0.4) % Absolute Granulocytes (1.4-6.9) Basophils # (0-0.4) D-Dimer (215-500) ng/mL Sodium (137-145) mmol/L Potassium (3.5-5.1) mmol/L Chloride (98-107) mmol/L Carbon Dioxide (22-30) mmol/L Anion Gap (5-15) MEQ/L BUN (9-20) mg/dL Creatinine (0.66-1.25) mg/dL Estimated GFR ML/MIN Glucose (74-106) mg/dL Lactic Acid 1.1 (0.4-2.0) Calcium (8.4-10.2) mg/dL Ferritin (17.9-464) ng/mL Total Bilirubin (0.2-1.3) mg/dL AST (17-59) U/L ALT (0-50) U/L Alkaline Phosphatase (38-126) U/L Lactate Dehydrogenase (120-246) U/L Troponin I (0.000-0.034) ng/mL Serum Total Protein (6.3-8.2) g/dL Albumin (3.5-5.0) g/dL Urine Color YELLOW (YELLOW) Urine Appearance SLIGHTLY CLOUDY (CLEAR) Urine pH 5.0 (5-6) Ur Specific [place] 1.016 (1.005-1.025) Urine Protein 30 (Negative) Urine Ketones NEGATIVE (NEGATIVE) Urine Blood NEGATIVE (0-5) Red/ul Urine Nitrite NEGATIVE (NEGATIVE) Urine Bilirubin NEGATIVE (NEGATIVE) Urine Urobilinogen NEGATIVE (0-1) mg/dL Ur Leukocyte Esterase TRACE (NEGATIVE) Urine WBC (Auto) 0-2 (0-5) /HPF Urine RBC (Auto) NONE (0-2) /HPF U Hyaline Cast (Auto) 3-5 (0-2) /LPF U Epithel Cells (Auto) NONE (FEW) /HPF Urine Bacteria (Auto) NONE (NEGATIVE) /HPF Urine Mucus (Auto) SLIGHT (NEGATIVE) /HPF Urine Culture Reflexed NO (NO) Urine Glucose NEGATIVE (NEGATIVE) mg/dL Monoscreen (Negative) Influenza Type A Ag NEGATIVE (NEGATIVE) Influenza Type B Ag NEGATIVE (NEGATIVE) RSV (PCR) NEGATIVE (Negative) SARS-CoV-2 (PCR) POSITIVE A (NEGATIVE) Group A Strep Antibody (NEGATIVE) 11/09/21 11/09/21 11/09/21 Range/Units 19:15 19:15 19:10 WBC (4.0-10.5) K/mm3 RBC (4.1-5.6) M/mm3 Hgb (12.5-18.0) gm/dl Hct (42-50) % MCV (78-100) fl MCH (26-32) pg MCHC (32-36) g/dl RDW (11.5-14.0) % Plt Count (150-450) K/mm3 MPV (7.5-11.0) fl Gran % (36.0-66.0) % Eos # (Auto) (0-0.5) Absolute Lymphs (auto) (1.0-4.6) Absolute Monos (auto) (0.0-1.3) Lymphocytes % (24.0-44.0) % Monocytes % (0.0-12.0) % Eosinophils % (0.00-5.0) % Basophils % (0.0-0.4) % Absolute Granulocytes (1.4-6.9) Basophils # (0-0.4) D-Dimer (215-500) ng/mL Sodium (137-145) mmol/L Potassium (3.5-5.1) mmol/L Chloride (98-107) mmol/L Carbon Dioxide (22-30) mmol/L Anion Gap (5-15) MEQ/L BUN (9-20) mg/dL Creatinine (0.66-1.25) mg/dL Estimated GFR ML/MIN Glucose (74-106) mg/dL Lactic Acid (0.4-2.0) Calcium (8.4-10.2) mg/dL Ferritin (17.9-464) ng/mL Total Bilirubin (0.2-1.3) mg/dL AST (17-59) U/L ALT (0-50) U/L Alkaline Phosphatase (38-126) U/L Lactate Dehydrogenase (120-246) U/L Troponin I (0.000-0.034) ng/mL Serum Total Protein (6.3-8.2) g/dL Albumin (3.5-5.0) g/dL Urine Color (YELLOW) Urine Appearance (CLEAR) Urine pH (5-6) Ur Specific [place] (1.005-1.025) Urine Protein (Negative) Urine Ketones (NEGATIVE) Urine Blood (0-5) Red/ul Urine Nitrite (NEGATIVE) Urine Bilirubin (NEGATIVE) Urine Urobilinogen (0-1) mg/dL Ur Leukocyte Esterase (NEGATIVE) Urine WBC (Auto) (0-5) /HPF Urine RBC (Auto) (0-2) /HPF U Hyaline Cast (Auto) (0-2) /LPF U Epithel Cells (Auto) (FEW) /HPF Urine Bacteria (Auto) (NEGATIVE) /HPF Urine Mucus (Auto) (NEGATIVE) /HPF Urine Culture Reflexed (NO) Urine Glucose (NEGATIVE) mg/dL Monoscreen POSITIVE (Negative) Influenza Type A Ag NEGATIVE (NEGATIVE) Influenza Type B Ag NEGATIVE (NEGATIVE) RSV (PCR) (Negative) SARS-CoV-2 (PCR) (NEGATIVE) Group A Strep Antibody NOT DETECTED (NEGATIVE) 11/09/21 11/09/21 11/09/21 Range/Units 19:10 19:10 19:10 WBC (4.0-10.5) K/mm3 RBC (4.1-5.6) M/mm3 Hgb (12.5-18.0) gm/dl Hct (42-50) % MCV (78-100) fl MCH (26-32) pg MCHC (32-36) g/dl RDW (11.5-14.0) % Plt Count (150-450) K/mm3 MPV (7.5-11.0) fl Gran % (36.0-66.0) % Eos # (Auto) (0-0.5) Absolute Lymphs (auto) (1.0-4.6) Absolute Monos (auto) (0.0-1.3) Lymphocytes % (24.0-44.0) % Monocytes % (0.0-12.0) % Eosinophils % (0.00-5.0) % Basophils % (0.0-0.4) % Absolute Granulocytes (1.4-6.9) Basophils # (0-0.4) D-Dimer 475 (215-500) ng/mL Sodium (137-145) mmol/L Potassium (3.5-5.1) mmol/L Chloride (98-107) mmol/L Carbon Dioxide (22-30) mmol/L Anion Gap (5-15) MEQ/L BUN (9-20) mg/dL Creatinine (0.66-1.25) mg/dL Estimated GFR ML/MIN Glucose (74-106) mg/dL Lactic Acid (0.4-2.0) Calcium (8.4-10.2) mg/dL Ferritin 261 (17.9-464) ng/mL Total Bilirubin (0.2-1.3) mg/dL AST (17-59) U/L ALT (0-50) U/L Alkaline Phosphatase (38-126) U/L Lactate Dehydrogenase (120-246) U/L Troponin I < 0.012 (0.000-0.034) ng/mL Serum Total Protein (6.3-8.2) g/dL Albumin (3.5-5.0) g/dL Urine Color (YELLOW) Urine Appearance (CLEAR) Urine pH (5-6) Ur Specific [place] (1.005-1.025) Urine Protein (Negative) Urine Ketones (NEGATIVE) Urine Blood (0-5) Red/ul Urine Nitrite (NEGATIVE) Urine Bilirubin (NEGATIVE) Urine Urobilinogen (0-1) mg/dL Ur Leukocyte Esterase (NEGATIVE) Urine WBC (Auto) (0-5) /HPF Urine RBC (Auto) (0-2) /HPF U Hyaline Cast (Auto) (0-2) /LPF U Epithel Cells (Auto) (FEW) /HPF Urine Bacteria (Auto) (NEGATIVE) /HPF Urine Mucus (Auto) (NEGATIVE) /HPF Urine Culture Reflexed (NO) Urine Glucose (NEGATIVE) mg/dL Monoscreen (Negative) Influenza Type A Ag (NEGATIVE) Influenza Type B Ag (NEGATIVE) RSV (PCR) (Negative) SARS-CoV-2 (PCR) (NEGATIVE) Group A Strep Antibody (NEGATIVE) 11/09/21 11/09/21 Range/Units 19:10 19:10 WBC 3.3 L (4.0-10.5) K/mm3 RBC 4.27 (4.1-5.6) M/mm3 Hgb 12.2 L (12.5-18.0) gm/dl Hct 37.8 L (42-50) % MCV 88.5 (78-100) fl MCH 28.6 (26-32) pg MCHC 32.3 (32-36) g/dl RDW 14.1 H (11.5-14.0) % Plt Count 117 L (150-450) K/mm3 MPV 11.3 H (7.5-11.0) fl Gran % 77.4 H (36.0-66.0) % Eos # (Auto) 0 (0-0.5) Absolute Lymphs (auto) 0.51 L (1.0-4.6) Absolute Monos (auto) 0.23 (0.0-1.3) Lymphocytes % 15.4 L (24.0-44.0) % Monocytes % 6.9 (0.0-12.0) % Eosinophils % 0.0 (0.00-5.0) % Basophils % 0.3 (0.0-0.4) % Absolute Granulocytes 2.57 (1.4-6.9) Basophils # 0.01 (0-0.4) D-Dimer (215-500) ng/mL Sodium 129 L (137-145) mmol/L Potassium 3.9 (3.5-5.1) mmol/L Chloride 95 L (98-107) mmol/L Carbon Dioxide 27 (22-30) mmol/L Anion Gap 11.1 (5-15) MEQ/L BUN 25 H (9-20) mg/dL Creatinine 1.37 H (0.66-1.25) mg/dL Estimated GFR 54.4 ML/MIN Glucose 134 H (74-106) mg/dL Lactic Acid (0.4-2.0) Calcium 7.5 L (8.4-10.2) mg/dL Ferritin (17.9-464) ng/mL Total Bilirubin 0.40 (0.2-1.3) mg/dL AST 42 (17-59) U/L ALT 30 (0-50) U/L Alkaline Phosphatase 43 (38-126) U/L Lactate Dehydrogenase 228 (120-246) U/L Troponin I (0.000-0.034) ng/mL Serum Total Protein 6.1 L (6.3-8.2) g/dL Albumin 3.3 L (3.5-5.0) g/dL Urine Color (YELLOW) Urine Appearance (CLEAR) Urine pH (5-6) Ur Specific [place] (1.005-1.025) Urine Protein (Negative) Urine Ketones (NEGATIVE) Urine Blood (0-5) Red/ul Urine Nitrite (NEGATIVE) Urine Bilirubin (NEGATIVE) Urine Urobilinogen (0-1) mg/dL Ur Leukocyte Esterase (NEGATIVE) Urine WBC (Auto) (0-5) /HPF Urine RBC (Auto) (0-2) /HPF U Hyaline Cast (Auto) (0-2) /LPF U Epithel Cells (Auto) (FEW) /HPF Urine Bacteria (Auto) (NEGATIVE) /HPF Urine Mucus (Auto) (NEGATIVE) /HPF Urine Culture Reflexed (NO) Urine Glucose (NEGATIVE) mg/dL Monoscreen (Negative) Influenza Type A Ag (NEGATIVE) Influenza Type B Ag (NEGATIVE) RSV (PCR) (Negative) SARS-CoV-2 (PCR) (NEGATIVE) Group A Strep Antibody (NEGATIVE) <ISABELA IRAHETA - Last Filed: 11/09/21 18:52> - Progress Progress: improved Air Movement: fair Blood Culture(s) Obtained: Yes Counseled pt/family regarding: lab results, diagnosis, rad results <ROMERO WASHINGTON - Last Filed: 11/09/21 22:27> - Progress Progress Note: 11/09/21 18:56 This patient is signed out to Dr. Romero Washington at shift change. Dr. Washington will follow up on all test results and make the final disposition. (ISABELA IRAHETA) Patient endorsed to Dr. Washington at approximately [address] Washington advised to follow- up on pending labs and imaging studies. Work-up reveals a leukopenia. Patient also has a thrombocytopenia with a hyponatremia likely due to dehydration. Hypocalcemia observed. Patient receiving IV fluids. Calcium gluconate administered. Patient is mono positive. Patient does not aware of any mono contacts. D-dimer negative. No indication for CTA chest at this time. Patient is a non-smoker. No history of COPD. However patient is hypoxic. Patient requires 4 L nasal cannula to maintain an O2 sat of 96%. In light of these derangements patient will be admitted for further evaluation and treatment. Plan of care discussed with patient. He agrees admission [facility] for further evaluation and treatment. Covid test ordered results pending. 11/09/21 20:20 Patient is Covid positive. Case discussed with Dr. Keane who accepts admission to the Covid unit. We will administer remdesivir Decadron and anticoagulate patient per Dr. Keane. 11/09/21 22:16 (ROMERO WASHINGTON) - Departure Departure Disposition: Home Critical Care Time: No <ISABELA IRAHETA - Last Filed: 11/09/21 18:52> - Departure Departure Disposition: Observation <ROMERO WASHINGTON - Last Filed: 11/09/21 22:27> - Departure Clinical Impression: Upper respiratory infection, Leukopenia, Thrombocytopenia, Hyponatremia, Dehyd ration, Hypocalcemia, Mononucleosis, Hypoxia, COVID-19 Condition: Fair Referrals: LOIS RUEDA MD [Primary Care Provider] - Follow up/PCP as directed
[2021-11-09 19:30] LABS: Absolute Neutrophil Ct (ANC) 2.57 (1.4-6.9); BASOPHIL % 0.3 % (0.0-0.4); Basophil (Absolute #) 0.01 (0-0.4); Eosinophil (Absolute #) 0 (0-0.5); Hematocrit 37.8 % (42-50); Hemoglobin 12.2 gm/dl (12.5-18.0); Lymphocyte (Absolute #) 0.51 (1.0-4.6); Lymphocytes % 15.4 % (24.0-44.0); Mean Cell Volume 88.5 fl (78-100); Mean Corpuscular Hemoglobin 28.6 pg (26-32); Mean Corpuscular Hgb Concent. 32.3 g/dl (32-36); Mean Platelet Volume 11.3 fl (7.5-11.0); Monocyte (Absolute #) 0.23 (0.0-1.3); Monocytes % 6.9 % (0.0-12.0); Neutrophil % 77.4 % (36.0-66.0); Platelet Count 117 K/mm3 (150-450); Red Blood Count 4.27 M/mm3 (4.1-5.6); Red Cell Distribution Width 14.1 % (11.5-14.0); White Blood Count 3.3 K/mm3 (4.0-10.5)
[2021-11-09 19:47] LABS: ALBUMIN 3.3 g/dL (3.5-5.0); ANION GAP 11.1 MEQ/L (5-15); BILIRUBIN,TOTAL 0.4 mg/dL (0.2-1.3); Calcium 7.5 mg/dL (8.4-10.2); Creatinine 1 1.37 mg/dL (0.66-1.25); EST GLOMERULAR FILTRATION RATE 54.4 ML/MIN; Potassium 3.9 mmol/L (3.5-5.1); Total Protein 6.1 g/dL (6.3-8.2)
[2021-11-09] MEDS ORDERED: Calcium Gluconate 10% 1000 MG IV ONE ×2 (20:05→20:17)
[2021-11-09 20:07] LABS: INFLUENZA A NEGATIVE (NEGATIVE); INFLUENZA B NEGATIVE (NEGATIVE)
[2021-11-09] MEDS: Sodium Chloride 0.9% 1000 ML 1,000 ML IV SCH (20:19)
[2021-11-09 21:26] LABS: Appearance SLIGHTLY CLOUDY (CLEAR); Bilirubin NEGATIVE (NEGATIVE); Blood NEGATIVE Ery/ul (0-5); Glucose NEGATIVE (NEGATIVE); Ketones NEGATIVE (NEGATIVE); Leukocyte Esterase TRACE (NEGATIVE); Mucus SLIGHT /HPF (NEGATIVE); Nitrite NEGATIVE (NEGATIVE); Protein,Urine Dip 30 (Negative); Specific Gravity 1.016 (1.005-1.025); Urobilinogen NEGATIVE mg/dL (0-1); WBC 0-2 /HPF (0-5)
[2021-11-09 21:54] LABS: INFLUENZA A NEGATIVE (NEGATIVE); INFLUENZA B NEGATIVE (NEGATIVE); RESPIRATORY SYNCTIAL VIRUS NEGATIVE (Negative)
[2021-11-09 21:56] LABS: SARS-CoV-2 Xpert Express POSITIVE (NEGATIVE)
[2021-11-09] MEDS ORDERED: DECADRON 10MG INJ. IV ONE (22:17)
[2021-11-09] MEDS ORDERED: REMDESIVIR 200 MG in Sodium Chloride 0.9% 250 ML 250 ML IV ONE (22:17)
[2021-11-09] MEDS ORDERED: ENOXAPARIN SODIUM SQ ONE ×3 (22:18→22:43)
[2021-11-09] MEDS ORDERED: DECADRON 10MG INJ. ONE (22:40)
[2021-11-09] MEDS ORDERED: VENTOLIN COMMON CANISTER IH PRN (23:40)
[2021-11-09] MEDS ORDERED: Zofran 4 MG/2 ML VIAL IV PRN (23:40)
[2021-11-10] MEDS: TYLENOL 325 MG PO PRN ×2 (01:07→18:48)
[2021-11-10 06:22] LABS: Absolute Neutrophil Ct (ANC) 2.64 (1.4-6.9); Basophil (Absolute #) 0 (0-0.4); Eosinophil (Absolute #) 0 (0-0.5); Hematocrit 39.3 % (42-50); Hemoglobin 12.6 gm/dl (12.5-18.0); Lymphocytes % 12.8 % (24.0-44.0); Mean Cell Volume 88.9 fl (78-100); Mean Corpuscular Hemoglobin 28.5 pg (26-32); Mean Corpuscular Hgb Concent. 32.1 g/dl (32-36); Mean Platelet Volume 11.6 fl (7.5-11.0); Monocyte (Absolute #) 0.08 (0.0-1.3); Monocytes % 2.6 % (0.0-12.0); Neutrophil % 84.6 % (36.0-66.0); Platelet Count 112 K/mm3 (150-450); Red Blood Count 4.42 M/mm3 (4.1-5.6); Red Cell Distribution Width 14.3 % (11.5-14.0); White Blood Count 3.1 K/mm3 (4.0-10.5)
[2021-11-10 07:11] LABS: ALBUMIN 3.5 g/dL (3.5-5.0); ANION GAP 11.5 MEQ/L (5-15); BILIRUBIN,TOTAL 0.4 mg/dL (0.2-1.3); Calcium 7.9 mg/dL (8.4-10.2); Creatinine 1 1.34 mg/dL (0.66-1.25); EST GLOMERULAR FILTRATION RATE 55.9 ML/MIN; Total Protein 6.4 g/dL (6.3-8.2)
--- NOTE | 2021-11-10 08:40 | XRAY ---
Indication: Cough. Comparison: October 06, 2017. Portable chest again hyperinflated with scattered calcified granulomas. New mild bibasilar interstitial opacities vs atelectasis. Pneumonia not completely excluded in the right clinical setting. Remaining heart and bony thorax unremarkable.
[2021-11-10] MEDS ORDERED: NAPROXEN SODIUM 220 MG PO PRN (09:12)
[2021-11-10] MEDS ORDERED: MOTRIN 400 MG PO PRN (09:19)
--- NOTE | 2021-11-10 09:20 | HP ---
CHIEF COMPLAINT: Shortness of breath, myalgia, coughing, shortness of breath. HISTORY OF PRESENT ILLNESS: The patient is a 71-year-old white male who has been pretty healthy until the last three weeks he has had a progressively increasing cough, shortness of breath, fatigue. Known medical problems include hypertension, obesity. TRAVEL RISK: He has not been out of the state. CORONAVIRUS SCREENING: Positive one week ago. MEDICATIONS: Coreg 6.25 b.i.d., lisinopril/hydrochlorothiazide 20/12.5 q.d., Allopurinol 300 q.d., vitamin D as Ergocalciferol 50,000 units q.d. ALLERGIES: MORPHINE. VALIUM. PAST MEDICAL/SURGICAL HISTORY: Hypertension. Occasional gout. History of penile cancer. Kidney stones. He had a stent in his bladder at one time for kidney stones. REVIEW OF SYSTEMS: HEENT: No problems hearing, seeing or tasting. CHEST: No shortness of breath except on exertion. ABDOMEN: No nausea or vomiting. CARDIAC: No chest heaviness, sharp pain. SOCIAL HISTORY: Never smoked. . PHYSICAL EXAMINATION: The patient is a pleasant, very nice gentleman appropriately aged. He is in no distress this morning. HEENT: Pupils equal and reactive to light. NECK: Supple without adenopathy. CHEST: Clear. No rales. CVS: No murmurs or gallops. ABDOMEN: Soft. No tenderness or organomegaly. BACK: No tenderness. EXTREMITIES: Good muscle strength for his age. pulses. No edema. LAB DATA AND TESTS: O2 delivery 4 liters. Last vital signs on the chart with pulse rate 80, respiratory rate 20, blood pressure 100/60. O2 saturation 95% on 4 liters. EKG no acute changes. His D-dimer is only 475. His white count was low at 3.3 as expected. Sodium slightly low at 129. IMPRESSION: The patient probably has COVID pneumonia, history of gout, history of hypertension. PLAN: The patient will be treated with Remdesivir, Decadron and anticoagulated. Hopefully in a few days should be able to go home. PROGNOSIS: [place] to be good.
[2021-11-10] MEDS ORDERED: Naprosyn 500 MG PO PRN (09:25)
[2021-11-10] MEDS ORDERED: NON-FORMULARY ITEM (Lisinopril/Hydrochlorothiazide [Lisinopril-Hctz 20-25 Mg Tab] 1 EACH T PO SCH (10:00)
[2021-11-10] MEDS ORDERED: NON-FORMULARY ITEM (Acetaminophen [Tylenol Arthritis] 650 MG Tablet.Er) PO SCH (10:00)
--- NOTE | 2021-11-10 10:15 | PROG NOTE ---
DATE: 11/10/2021 CHIEF COMPLAINT: Cough for three weeks, positive COVID test, chest x-ray nonspecific. HISTORY: The patient no fever, no chills. He slept pretty well. His cough is much better. He has been on a couple of liters of oxygen but he says he does not feel short of breath. Glucose was 189 on admission. Creatinine 1.39. Sodium slightly low at 128 due to fluid overload. BNP is normal at 114. D-dimer normal 475. Plain chest x-ray showed pneumonia not completely excluded in his clinical setting. Apparently they did not see any pneumonia on the x-ray. The patient is much improved. The patient did have the vaccine and should be able to be discharged soon. We did give him Remdesivir, Lovenox and Decadron. PHYSICAL EXAMINATION: CHEST: Clear. CVS: Heart sounds are normal. PROGNOSIS: Good.
[2021-11-10] MEDS: Sodium Chloride 0.9% 1000 ML 1,000 ML IV SCH (10:34)
[2021-11-10] MEDS: MAG-OX 400 PO SCH (10:35)
[2021-11-10] MEDS: Coreg 6.25 MG PO SCH ×2 (10:35→21:56)
[2021-11-10] MEDS: Zestril 20 MG PO SCH (10:36)
[2021-11-10] MEDS: hydroDIURIL 25 MG PO SCH (10:36)
[2021-11-10] MEDS: TYLENOL 325 MG PO SCH ×2 (10:37→21:57)
[2021-11-10] MEDS: Pepcid 20 MG VIAL IV SCH ×2 (10:37→21:56)
[2021-11-10] MEDS: ECOTRIN 81 MG PO SCH ×3 (10:37→21:57)
[2021-11-10] MEDS: Flomax 0.4 MG PO SCH ×3 (10:38→21:57)
[2021-11-10] MEDS ORDERED: Ativan 2 MG/1 ML VIAL IV PRN (13:21)
[2021-11-10] MEDS ORDERED: HYDROCODONE-CHLORPHEN ER SUSP PO PRN (13:21)
[2021-11-10] MEDS ORDERED: Ativan 1 MG PO PRN (13:21)
[2021-11-10] MEDS ORDERED: OLUMIANT PO SCH (14:00)
[2021-11-10] MEDS: DECADRON 10MG INJ. IV SCH (14:26)
[2021-11-10] MEDS: OLUMIANT PO SCH (14:26)
[2021-11-10] MEDS: REMDESIVIR 100 MG in Sodium Chloride 0.9% 100 ML BAG 100 ML IV SCH (21:56)
[2021-11-10] MEDS: ENOXAPARIN SODIUM SQ SCH (21:56)
[2021-11-10] MEDS: ZYLOPRIM 300 MG PO SCH (21:57)
[2021-11-11] MEDS: Voltaren GEL TOP PRN ×2 (02:06→11:03)
[2021-11-11 07:07] LABS: Hematocrit 37.5 % (42-50); Hemoglobin 12.2 gm/dl (12.5-18.0); Mean Cell Volume 87.6 fl (78-100); Mean Corpuscular Hemoglobin 28.5 pg (26-32); Mean Corpuscular Hgb Concent. 32.5 g/dl (32-36); Mean Platelet Volume 11.2 fl (7.5-11.0); Platelet Count 143 K/mm3 (150-450); Red Blood Count 4.28 M/mm3 (4.1-5.6); Red Cell Distribution Width 14.1 % (11.5-14.0)
[2021-11-11 07:31] LABS: ALBUMIN 2.8 g/dL (3.5-5.0); ALKALINE PHOSPHATASE 43 U/L (38-126); ANION GAP 10.9 MEQ/L (5-15); BLOOD UREA NITROGEN 29 mg/dL (9-20); CHLORIDE 104 mmol/L (98-107); Calcium 7.8 mg/dL (8.4-10.2); Carbon Dioxide 23 mmol/L (22-30); Creatinine 1 1.18 mg/dL (0.66-1.25); EST GLOMERULAR FILTRATION RATE > 60.0 ML/MIN; Glucose 165 mg/dL (74-106); Potassium 4.1 mmol/L (3.5-5.1); SGOT/AST 38 U/L (17-59); SGPT/ALT 33 U/L (0-50); SODIUM 133 mmol/L (137-145); Total Protein 5.3 g/dL (6.3-8.2)
[2021-11-11] MEDS: Sodium Chloride 0.9% 1000 ML 1,000 ML IV SCH (08:27)
[2021-11-11] MEDS: TYLENOL 325 MG PO SCH (11:05)
[2021-11-11] MEDS: Zestril 20 MG PO SCH (11:07)
[2021-11-11] MEDS: Pepcid 20 MG VIAL IV SCH ×2 (11:07→21:54)
[2021-11-11] MEDS: hydroDIURIL 25 MG PO SCH (11:07)
[2021-11-11] MEDS: OLUMIANT PO SCH (11:07)
[2021-11-11] MEDS: DECADRON 10MG INJ. IV SCH (11:13)
[2021-11-11] MEDS: Coreg 6.25 MG PO SCH ×2 (11:13→21:52)
[2021-11-11] MEDS: MAG-OX 400 PO SCH (11:14)
[2021-11-11] MEDS: REMDESIVIR 100 MG in Sodium Chloride 0.9% 100 ML BAG 100 ML IV SCH (17:50)
[2021-11-11 20:11] VITALS: BP 156/90; PULSE 86; O2SAT 90
[2021-11-11] MEDS: ENOXAPARIN SODIUM SQ SCH (21:52)
[2021-11-11] MEDS: ECOTRIN 81 MG PO SCH (21:52)
[2021-11-11] MEDS: Flomax 0.4 MG PO SCH (21:54)
[2021-11-11] MEDS: ZYLOPRIM 300 MG PO SCH (21:55)
== END 2021-11-11 22:10 ==
LOC: ED 18:17 → MED SURG 23:39
PROVIDERS: ADMIT Family Medicine; ATTEND Family Medicine
DX: U07.1 COVID-19 (principal); D72.819 Decreased white blood cell count, unspecified; D69.6 Thrombocytopenia, unspecified; E87.1 Hypo-osmolality and hyponatremia; E86.0 Dehydration; E83.51 Hypocalcemia; B27.90 Infectious mononucleosis, unspecified without complication; R09.02 Hypoxemia; I10 Essential (primary) hypertension; E66.9 Obesity, unspecified; Z79.01 Long term (current) use of anticoagulants; Z20.828 Contact with and (suspected) exposure to other viral communicable diseases; Z79.899 Other long term (current) drug therapy
CPT/HCPCS: 0241U; 36000; 36415; 71045; 80053; 81001; 82728; 83605; 83615; 83880; 84484; 85025; 85027; 85379; 86308; 87040; 87400; 87651; 93005; 93041; 93268; 94760; 94762; 96372; 96374; 99285; G0378; J0610; J1100; J1650; A9270-GY

== ENCOUNTER 2022-09-18 21:13 | Emergency (ER) | payer MEDICARE ==
[2022-09-18] MEDS: BABY ASPIRIN 81 MG CHEW PO ONE (21:25)
[2022-09-18] MEDS ORDERED: BABY ASPIRIN 81 MG CHEW ONE (21:31)
[2022-09-18 22:01] LABS: Absolute Neutrophil Ct (ANC) 4.33 x10^3/uL (1.4-6.9); Basophil (Absolute #) 0.04 x10^3/uL (0-0.4); Eosinophil % 3.9 % (0.00-5.0); Eosinophil (Absolute #) 0.26 x10^3/uL (0-0.5); Hematocrit 42.4 % (42-50); Hemoglobin 13.5 g/dL (12.5-18.0); Lymphocyte (Absolute #) 1.43 x10^3/uL (1.0-4.6); Lymphocytes % 21.5 % (24.0-44.0); Mean Cell Volume 91.4 fL (78-100); Mean Corpuscular Hemoglobin 29.1 pg (26-32); Mean Corpuscular Hgb Concent. 31.8 g/dL (32-36); Mean Platelet Volume 11.2 fL (7.5-11.0); Monocyte (Absolute #) 0.57 x10^3/uL (0.0-1.3); Monocytes % 8.6 % (0.0-12.0); Neutrophil % 65.2 % (36.0-66.0); Platelet Count 157 x10^3/uL (150-450); Red Blood Count 4.64 x10^6/uL (4.1-5.6); Red Cell Distribution Width 14.1 % (11.5-14.0); White Blood Count 6.6 x10^3/uL (4.0-10.5)
[2022-09-18 22:14] LABS: ALBUMIN 3.8 g/dL (3.5-5.0); ANION GAP 9.1 MEQ/L (5-15); BILIRUBIN,TOTAL 0.4 mg/dL (0.2-1.3); Calcium 8.7 mg/dL (8.4-10.2); Creatinine 1 1.36 mg/dL (0.66-1.25); EST GLOMERULAR FILTRATION RATE 54.9 ML/MIN; Potassium 3.8 mmol/L (3.5-5.1); Total Protein 6.6 g/dL (6.3-8.2)
--- NOTE | 2022-09-19 00:22 | ERPHSYRPT ---
- History of Present Illness Time Seen by Provider: 09/18/22 21:30 Historian: patient Exam Limitations: no limitations Patient Subjective Stated Complaint: I was watching TV and started having chest pain Triage Nursing Assessment: pt ambulated back into ER without diff. Pt alert and oriented x3, pleasant and cooperative. Pt c/o chest pain which occured at rest this evening and radiated to rt shoulder. Pt's pain has subsided a great deal at this time. Rates pain a 2 on 0-10 scale, states pain is dull/intermittent. Lungs clear, heart tones reg. Physician History: Patient is a 71-year-old male presents emergency department for evaluation of chest pain. Patient states he was at home watching TV when chest pain started. Chest pain described as an ache that is substernal. Pain radiated to his right shoulder. No associated nausea vomiting or diaphoresis. Upon arrival to our ED patient's chest pain subsided. Pain currently rated 2 out of 10. No trauma. No fever. Symptoms are mild to moderate in intensity. No specific worsening improving factors. Patient voices no other complaints or concerns at this time. Portions of this note were created with voice recognition technology. There may be grammatical, spelling, punctuation or sound alike errors Timing/Duration: today Activities at Onset: none Quality: aching Location: substernal Chest Pain Radiation: arm Severity of Pain-Max: moderate Severity of Pain-Current: mild Modifying Factors: Improves With: nothing Associated Symptoms: denies symptoms Prior Chest Pain/Cardiac Workup: no prior chest pain Nitro Today/Relief: no nitro taken today Aspirin Treatment Today: no aspirin today Allergies/Adverse Reactions: morphine Allergy (Verified 09/18/22 21:28) diazepam [From Valium] Adverse Reaction (Verified 09/18/22 21:28) Home Medications: Carvedilol [Coreg 6.25 MG] 6.25 mg PO BID 10/06/17 [History] Lisinopril/Hydrochlorothiazide [Lisinopril-Hctz 20-25 mg Tab] 1 each PO DAILY 10/06/17 [History] Allopurinol 300 mg [Zyloprim 300 mg] 1 tab PO HS 11/09/21 [History] Ergocalciferol (Vitamin D2) [Vitamin D2] 50,000 unit PO DIRECTIONS UNKNOWN 11/09/21 [History] Acetaminophen [Tylenol Arthritis] 650 mg PO DAILY 11/10/21 [History] Aspirin [Low Dose Aspirin EC] 81 mg PO DAILY 11/10/21 [History] Biotin 10,000 mcg PO DAILY 11/10/21 [History] Ibuprofen 200 mg [Motrin 200 mg] 400 mg PO Q6H PRN PRN 11/10/21 [History] Magnesium Oxide 400 mg [Mag-Ox 400] 400 mg PO DAILY 11/10/21 [History] Naproxen Sodium 220 mg [Aleve 220 MG] 220 mg PO Q6H PRN PRN 11/10/21 [History] Non-Formulary Drug [Non-Formulary Item] 1,080 units PO BID 11/10/21 [History] Non-Formulary Drug [Non-Formulary Item] 4,200 mg PO DAILY 11/10/21 [History] [place]-3S/Dha/Epa/Fish Oil [Fish Oil [place]-3 Softgel] 1 each PO DAILY 11/10/21 [History] Vitamin B Complex [B Complex] 1 tab PO DAILY 11/10/21 [History] Tamsulosin HCl 0.4 mg [Flomax 0.4 MG] 0.4 mg PO HS 09/18/22 [History] Hx Tetanus, Diphtheria Vaccination/Date Given: No Hx Influenza Vaccination/Date Given: No Hx Pneumococcal Vaccination/Date Given: No Immunizations Up to Date: No Travel Risk - International Travel Have you traveled outside of the country in past 3 weeks: No - Coronavirus Screening Are you exhibiting any of the following symptoms?: No Close contact with a COVID-19 positive Pt in past 14-21 Days: No - Vaccine Status Have you recieved a Covid-19 vaccination: Yes [employer]: [employer] - Vaccination Dates Date of 2cond Vaccination (if applicable): . - Review of Systems Constitutional: No Symptoms, No Fever, No Chills Eyes: No Symptoms Ears, Nose, & Throat: No Symptoms Respiratory: No Symptoms, No Cough, No Dyspnea Cardiac: No Symptoms, No Chest Pain, No Edema, No Syncope Abdominal/Gastrointestinal: No Symptoms, No Abdominal Pain, No Nausea, No Vomiting, No Diarrhea Genitourinary Symptoms: No Symptoms, No Dysuria Musculoskeletal: No Symptoms, No Back Pain, No Neck Pain Skin: No Symptoms, No Rash Neurological: No Symptoms, No Dizziness, No Focal Weakness, No Sensory Changes Psychological: No Symptoms Endocrine: No Symptoms Hematologic/Lymphatic: No Symptoms Immunological/Allergic: No Symptoms All Other Systems: Reviewed and Negative - Past Medical History Pertinent Past Medical History: Yes Neurological History: Migraines ENT History: No Pertinent History Cardiac History: Hypertension Respiratory History: No Pertinent History Endocrine Medical History: No Pertinent History Musculoskeletal History: No Pertinent History GI Medical History: No Pertinent History History: Other Psycho-Social History: No Pertinent History 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 Disorders: Penile Cancer Other Medical History: kidney stones - Past Surgical History Past Surgical History: Yes Neuro Surgical History: No Pertinent History Cardiac: No Pertinent History Respiratory: No Pertinent History Gastrointestinal: No Pertinent History Genitourinary: No Pertinent History Musculoskeletal: Orthopedic Surgery Male Surgical History: Other Other Surgical History: CYSTO WITH STENT FOR KIDNEY STONES. knee surgery. skin cancer removal. penis removal - Social History Smoking Status: Never smoker Exposure to second hand smoke: No Drug Use: none Patient Lives Alone: No - Nursing Vital Signs Nursing Vital Signs: Initial Vital Signs Temperature 97.7 F 09/18/22 21:15 Pulse Rate 92 H 09/18/22 21:15 Respiratory Rate 24 09/18/22 21:15 Blood Pressure 169/97 09/18/22 21:15 O2 Sat by Pulse Oximetry 100 09/18/22 21:15 Pain Scale Pain Intensity 1 - Physical Exam General Appearance: no apparent distress, alert Eye Exam: PERRL/EOMI, eyes nml inspection Ears, Nose, Throat Exam: normal ENT inspection, moist mucous membranes Neck Exam: normal inspection, non-tender, supple, full range of motion Respiratory Exam: normal breath sounds, lungs clear, airway intact, No respiratory distress Cardiovascular Exam: regular rate/rhythm, normal heart sounds, normal peripheral pulses Gastrointestinal/Abdomen Exam: soft, normal bowel sounds, No tenderness, No mass Back Exam: normal inspection, No CVA tenderness, No vertebral tenderness Extremity Exam: normal inspection, normal range of motion Neurologic Exam: alert, oriented x 3, cooperative, normal mood/affect, sensation nml, No motor deficits Skin Exam: normal color, warm, dry SpO2 Interpretation: normal SpO2: 97 O2 Delivery: Room Air - Course Nursing assessment & vital signs reviewed: Yes EKG Interpreted by Me: RATE (90), Sinus Rhythm, NORMAL AXIS, NORMAL INTERVALS (Minimal ST segment depression in inferior leads.) Ordered Tests: Active Orders 24 hr Category Date Time Status Interline Clerk STAT Care 09/18/22 21:37 Active EKG-ER Only STAT Care 09/18/22 21:36 Active IV Insertion STAT Care 09/18/22 21:36 Active Pulse Oximetry (ED) STAT Care 09/18/22 21:36 Active CHEST WITH CONTRAST [CT] Stat Exams 09/18/22 23:47 Ordered BLOOD CULTURE Stat Lab 09/18/22 21:50 Received CBC W DIFF Stat Lab 09/18/22 21:20 Completed CMP Stat Lab 09/18/22 21:20 Completed D-DIMER QUANTITATIVE Stat Lab 09/18/22 21:20 Completed TROPONIN Q4H Lab 09/18/22 21:20 Completed TROPONIN Q4H Lab 09/19/22 01:45 Ordered TROPONIN Q4H Lab 09/19/22 05:45 Ordered Medication Summary Discontinued Medications Generic Name Dose Route Start Last Admin Trade Name Freq PRN Reason Stop Dose Admin Aspirin Confirm 09/18/22 21:31 Aspirin 81 Mg Tab.Chew Administered 09/18/22 21:32 Dose 324 mg .ROUTE .STK-MED ONE Aspirin 324 mg 09/18/22 21:33 09/18/22 21:25 Aspirin 81 Mg Tab.Chew PO 09/18/22 21:34 324 mg STAT ONE Administration Lab/Rad Data: Laboratory Result Diagrams 09/18/22 21:20 09/18/22 21:20 Laboratory Results 09/18/22 09/18/22 09/18/22 Range/Units 21:20 21:20 21:20 WBC (4.0-10.5) x10^3/uL RBC (4.1-5.6) x10^6/uL Hgb (12.5-18.0) g/dL Hct (42-50) % MCV (78-100) fL MCH (26-32) pg MCHC (32-36) g/dL RDW (11.5-14.0) % Plt Count (150-450) x10^3/uL MPV (7.5-11.0) fL Gran % (36.0-66.0) % Immature Gran % (Auto) (0.00-0.4) % Nucleat RBC Rel Count (0.00-0.1) % Eos # (Auto) (0-0.5) x10^3/uL Immature Gran # (Auto) (0.00-0.03) x10^3u/L Absolute Lymphs (auto) (1.0-4.6) x10^3/uL Absolute Monos (auto) (0.0-1.3) x10^3/uL Absolute Nucleated RBC (0.00-0.01) x10^3u/L Lymphocytes % (24.0-44.0) % Monocytes % (0.0-12.0) % Eosinophils % (0.00-5.0) % Basophils % (0.0-0.4) % Absolute Granulocytes (1.4-6.9) x10^3/uL Basophils # (0-0.4) x10^3/uL D-Dimer 0.61 H* (0.0-0.50) mg/L Sodium 139 (137-145) mmol/L Potassium 3.8 (3.5-5.1) mmol/L Chloride 106 (98-107) mmol/L Carbon Dioxide 27 (22-30) mmol/L Anion Gap 9.1 (5-15) MEQ/L BUN 25 H (9-20) mg/dL Creatinine 1.36 H (0.66-1.25) mg/dL Estimated GFR 54.9 ML/MIN Glucose 164 H (74-106) mg/dL Calcium 8.7 (8.4-10.2) mg/dL Total Bilirubin 0.40 (0.2-1.3) mg/dL AST 19 (17-59) U/L ALT 20 (0-50) U/L Alkaline Phosphatase 81 (38-126) U/L Troponin I < 0.012 (0.000-0.034) ng/mL Serum Total Protein 6.6 (6.3-8.2) g/dL Albumin 3.8 (3.5-5.0) g/dL 09/18/22 Range/Units 21:20 WBC 6.6 (4.0-10.5) x10^3/uL RBC 4.64 (4.1-5.6) x10^6/uL Hgb 13.5 (12.5-18.0) g/dL Hct 42.4 (42-50) % MCV 91.4 (78-100) fL MCH 29.1 (26-32) pg MCHC 31.8 L (32-36) g/dL RDW 14.1 H (11.5-14.0) % Plt Count 157 (150-450) x10^3/uL MPV 11.2 H (7.5-11.0) fL Gran % 65.2 (36.0-66.0) % Immature Gran % (Auto) 0.2 (0.00-0.4) % Nucleat RBC Rel Count 0.0 (0.00-0.1) % Eos # (Auto) 0.26 (0-0.5) x10^3/uL Immature Gran # (Auto) 0.01 (0.00-0.03) x10^3u/L Absolute Lymphs (auto) 1.43 (1.0-4.6) x10^3/uL Absolute Monos (auto) 0.57 (0.0-1.3) x10^3/uL Absolute Nucleated RBC 0.00 (0.00-0.01) x10^3u/L Lymphocytes % 21.5 L (24.0-44.0) % Monocytes % 8.6 (0.0-12.0) % Eosinophils % 3.9 (0.00-5.0) % Basophils % 0.6 (0.0-0.4) % Absolute Granulocytes 4.33 (1.4-6.9) x10^3/uL Basophils # 0.04 (0-0.4) x10^3/uL D-Dimer (0.0-0.50) mg/L Sodium (137-145) mmol/L Potassium (3.5-5.1) mmol/L Chloride (98-107) mmol/L Carbon Dioxide (22-30) mmol/L Anion Gap (5-15) MEQ/L BUN (9-20) mg/dL Creatinine (0.66-1.25) mg/dL Estimated GFR ML/MIN Glucose (74-106) mg/dL Calcium (8.4-10.2) mg/dL Total Bilirubin (0.2-1.3) mg/dL AST (17-59) U/L ALT (0-50) U/L Alkaline Phosphatase (38-126) U/L Troponin I (0.000-0.034) ng/mL Serum Total Protein (6.3-8.2) g/dL Albumin (3.5-5.0) g/dL - Progress Air Movement: good Progress Note: Patient reassessed. He is chest pain-free. EKG shows minimal ST segment depr ession inferiorly. Initial troponin negative. Positive D-dimer. However age- adjusted may preclude the need for a CT scan. But in light of patient's chest pain abnormal EKG and elevated D-dimer a CT scan was ordered. Patient is of sound mind. Patient is appropriate to make informed and independent medical decisions. A heart score was performed. Patient's score is 5. This poses a considerable risk for major adverse coronary event in the next 6 weeks. We did not get a chest x-ray initially as we were waiting for the D-dimer to result. Patient does not want the CAT scan or chest x-ray at this time. We will discharge patient AMA. Patient is of sound mind. Patient is appropriate to make informed and independent medical decisions. Patient understands that leaving AGAINST MEDICAL ADVICE can result in delayed diagnosis, increased risk of morbidity, mortality, short and long-term disability including . In spite of these risks, patient has decided to leave AGAINST MEDICAL ADVICE. Patient understands that he may return to our ED at any point if he reconsiders. Patient agrees to follow-up with his or her primary care doctor within 48 hours for reevaluation. Patient voices no other complaints or concerns at this time. We will release patient AGAINST MEDICAL ADVICE per their request. Portions of this note were created with voice recognition technology. There may be grammatical, spelling, punctuation or sound alike errors Blood Culture(s) Obtained: No Antibiotics given: No Counseled pt/family regarding: lab results, diagnosis, need for follow-up, rad results - Departure Departure Disposition: AMA Clinical Impression: Chest pain, ACS (acute coronary syndrome) Condition: Stable Critical Care Time: No Referrals: LOIS RUEDA MD [Primary Care Provider] - Follow up/PCP as directed Additional Instructions: Discharge/Care Plan CONCEPCION GRIMALDO was seen on 09/19/22 in the Emergency Room. The patient was counseled regarding Diagnosis,Lab results, Imaging studies, need for follow up a nd when to return to the Emergency Room. Prescriptions given: Discharge Note I have spoken with the patient and/or caregivers. I have explained the patient's condition, diagnosis and treatment plan based on the information available to me at this time. I have answered the patient's and/or caregiver's questions and addressed any concerns. The patient and/or caregivers have as good understanding of the patient's diagnosis, condition and treatment plan as can be expected at this point. The vital signs have been stable. The patient's condition is stable and appropriate for discharge from the emergency department. The patient will pursue further outpatient evaluation with the primary care physician or other designated or consulting physician as outlined in the discharge instructions. The patient and/or caregivers are agreeable to this plan of care and follow-up instructions have been explained in detail. The patient and/or caregivers have received these instruction. The patient/and or caregivers are aware that any significant change in condition or worsening of symptoms should prompt an immediate return to this or the closest emergency department or call 911.
[2022-09-19 00:29] VITALS: BP 164/84; PULSE 78
[2022-09-19 00:32] VITALS: O2SAT 97
== END 2022-09-19 00:40 | disposition left against medical advice (07) ==
LOC: ED 21:13
DX: I24.9 Acute ischemic heart disease, unspecified (principal); R07.9 Chest pain, unspecified; I10 Essential (primary) hypertension; Z79.899 Other long term (current) drug therapy
CPT/HCPCS: 36000; 36415; 80053; 84484; 85025; 85379; 87040; 93005; 93041; 94760; 99284; A9270-GY